=== PATIENT | male | born 1970 | race Caucasian/White ===

== ENCOUNTER → 2017-06-27 17:15 | Emergency (ER) | payer OTHER ==
[~2017-06-27 17:15] MED LIST: Iohexol 350* (CONTRAST) 500 ML MDV IV ONE; Ketorolac INJ* 30 MG/ML 1 ML VIAL IV PUSH ONE; Ketorolac INJ* 30 MG/ML 1 ML VIAL ONE; LORazepam INJ* 2 MG/ML 1 ML VIAL IV PUSH ONE; LORazepam INJ* 2 MG/ML 1 ML VIAL ONE
[2017-06-27 18:38] LABS: Hematocrit 44 % (42-52); Hemoglobin 14.9 g/dl (14.0-18.0); Mean Corpuscular HGB Conc 34 g/dl (31-36); Mean Corpuscular Hemoglobin 33 pg (27-31); Mean Corpuscular Volume 98 fL (80-94); Mean Platelet Volume 8 um3 (7.4-10.4); Platelet Count 165 10^3/ul (150-450); Red Blood Count 4.48 10^6/ul (4.0-5.4); Red Cell Distribution Width 12 % (10.5-15); White Blood Count 7.4 10^3/ul (3.5-10.8)
[2017-06-27 18:44] LABS: ABS Basophils 0.1 10^3/ul (0-0.2); ABS Eosinophils 0.1 10^3/ul (0-0.6); ABS Lymphocytes 1.6 10^3/ul (1.0-4.8); ABS Monocytes 0.8 10^3/ul (0-0.8); ABS Neutrophils 4.9 10^3/ul (1.5-7.7); ABS Nucleated RBC 0 10^3/ul; Lymphocyte % 21.7 % (25-47); Nucleated Red Blood Cells % 0
[2017-06-27 18:55] LABS: EGFR Non-African American 80.1 (>60)
--- NOTE | 2017-06-27 19:00 | RAD ---
HISTORY: Chest pain and shortness of breath COMPARISONS: None TECHNIQUE: Multiple contiguous axial CT scans of the chest were obtained after the administration of nonionic intravenous contrast, timed to the pulmonary arterial phase of contrast enhancement.. Coronal and sagittal multiplanar reformations are also submitted for review. FINDINGS: NECK AND THYROID: The lower neck and thyroid are unremarkable. CHEST WALL: There is no lower cervical, axillary, or supraclavicular lymphadenopathy by size criteria. HEART AND PERICARDIUM: The heart is unremarkable. AORTA AND PULMONARY VASCULATURE: There is no pulmonary arterial filling defect to suggest pulmonary embolism. Evaluation of the aorta is limited by technique; however, there is no appreciable linear filling defect within the aorta to suggest aortic dissection. MEDIASTINUM: There is no mediastinal lymphadenopathy by size criteria. HEMA: There is no hilar lymphadenopathy by size criteria. AIRWAY AND ESOPHAGUS: The airway is unremarkable, without endobronchial filling defect. The esophagus is grossly normal. LUNG PARENCHYMA: There is minimal dependent atelectasis of the lung bases bilaterally. PLEURA: No pleural abnormalities are noted. UPPER ABDOMEN: The upper abdomen is unremarkable. BONES AND SOFT TISSUES: Mild degenerative changes are noted. OTHER: None. IMPRESSION: NO PULMONARY ARTERIAL FILLING DEFECT TO SUGGEST PULMONARY EMBOLISM.
--- NOTE | 2017-06-27 20:58 | ED ---
Davon Mendiola Gabriel, scribed for Eber Cortés MD on 06/27/17 at 2026 . Progress - Progress Note Progress Note: This patient was signed out from Dr. Fair, pending disposition, awaiting CTA Chest/Thorax. CTA reveals NO PULMONARY ARTERIAL FILLING DEFECT TO SUGGEST PULMONARY EMBOLISM. Patient had spasm like pain in the left chest wall. In the ED he was given toradol and Ativan and is feeling better. The patients condition is stable and will be discharged to home with Dx of chest wall pain. Course/Dx - Diagnoses Provider Diagnoses: Chest wall pain The documentation as recorded by the Davon laws Gabriel accurately reflects the service I personally performed and the decisions made by Moo hanks Abdul, MD.
[2017-06-28 00:26] VITALS: BP 116/67
--- NOTE | 2017-06-28 18:17 | ED ---
Ruben Mendiola Angela, scribed for Abhilash Fair MD on 06/27/17 at 1827 . HPI Chest Pain - HPI Summary HPI Summary: This pt is a 47 y/o male presenting to [facility] c/o left sided chest pain that began at 20:00 last night. Pt reports he had intense chest pain last night for 30 minutes and then it dissipated. Today pt notes he had a dull chest pain throughout the day but suddenly had sharp chest pain. He states his chest pain is pleuritic. Pt denies recent long travel distance, SOB, fever. Pt went to see his PCP (Dr. Rodriguez) today and had blood work done. He reports he has had occasional chest pain in the past but it has never been this prolonged. He denies any surgeries. Denies any PMHx. - History of Current Complaint Chief Complaint: EDChestPainROMI Time Seen by Provider: 06/27/17 18:18 Hx Obtained From: Patient Onset/Duration: Started Hours Ago, Still Present Timing: Intermittent, Lasting Minutes Current Severity: Moderate Pain Intensity: 7 Pain Scale Used: 0-10 Numeric Chest Pain Location: Left Anterior Chest Pain Radiates: No Character: Dull/Aching - Dull, Sharp/Stabbing - Sharp Aggravating Factor(s): Nothing Alleviating Factor(s): Nothing Associated Signs and Symptoms: Positive: Chest Pain. Negative: Shortness of Breath, Fever - Allergy/Home Medications Allergies/Adverse Reactions: Allergies Allergy/AdvReac Type Severity Reaction Status Date / Time No Known Allergies Allergy Verified 06/27/17 18:14 PMH/Surg Hx/FS Hx/Imm Hx Endocrine/Hematology History: Denies: Hx Diabetes Cardiovascular History: Denies: Hx Hypertension - Surgical History Surgery Procedure, Year, and Place: None Infectious Disease History: No Infectious Disease History: Denies: Traveled Outside the [place] in Last 30 Days - Family History Known Family History: Negative: Hypertension, Diabetes Family History: Mother: atrial fibrillation. - Social History Alcohol Use: Rare Substance Use Type: Reports: None Smoking Status (MU): Never Smoked Tobacco Review of Systems Negative: Fever, Chills Positive: Chest Pain Negative: Shortness Of Breath Skin: Negative Neurological: Negative All Other Systems Reviewed And Are Negative: Yes Physical Exam - Summary Physical Exam Summary: VITAL SIGNS: Reviewed. GENERAL: Patient is a well-developed and nourished male who is lying comfortable in the stretcher. Patient is not in any acute respiratory distress. HEAD AND FACE: No signs of trauma. No ecchymosis, hematomas or skull depressions. No sinus tenderness. EYES: PERRLA, EOMI x 2, No injected conjunctiva, no nystagmus. EARS: Hearing grossly intact. Ear canals and tympanic membranes are within normal limits. MOUTH: Oropharynx within normal limits. NECK: Supple, trachea is midline, no adenopathy, no JVD, no carotid bruit, no c- spine tenderness, neck with full ROM. CHEST: Symmetric, Tenderness on the left rib cage area. LUNGS: Clear to auscultation bilaterally. No wheezing or crackles. CVS: Regular rate and rhythm, S1 and S2 present, no murmurs or gallops appreciated. ABDOMEN: Soft, non-tender. No signs of distention. No rebound no guarding, and no masses palpated. Bowel sounds are normal. EXTREMITIES: FROM in all major joints, no edema, no cyanosis or clubbing. NEURO: Alert and oriented x 3. No acute neurological deficits. Speech is normal and follows commands. SKIN: Dry and warm Triage Information Reviewed: Yes Vital Signs On Initial Exam: Initial Vitals Temp Pulse Resp BP Pulse Ox 99.3 F 74 20 129/79 98 06/27/17 17:16 06/27/17 17:16 06/27/17 17:16 06/27/17 17:16 06/27/17 17:16 Vital Signs Reviewed: Yes Diagnostics - Vital Signs Vital Signs Temp Pulse Resp BP Pulse Ox 06/27/17 17:16 99.3 F 74 20 129/79 98 - Laboratory Result Diagrams: 06/27/17 18:30 06/27/17 18:30 Lab Statement: Any lab studies that have been ordered have been reviewed, and results considered in the medical decision making process. - EKG 17:22 Cardiac Rate: NL EKG Rhythm: Sinus Rhythm - at 74 bpm EKG Interpretation: No ST elevation. Chest Pain Course/Dx - Course Assessment/Plan: This pt is a 47 y/o male presenting to [facility] c/o left sided chest pain that began at 20:00 last night. Pt reports he had intense chest pain last night for 30 minutes and then it dissipated. Today pt notes he had a dull chest pain throughout the day but suddenly had sharp chest pain. He states his chest pain is pleuritic. Pt denies recent long travel distance, SOB, fever. Pt went to see his PCP (Dr. Rodriguez) today and had blood work done. He reports he has had occasional chest pain in the past but it has never been this prolonged. He denies any surgeries. Denies any PMHx. Test results without any significant abnormalities except for D-dimer of 506. Since he is complaining of mild chest pain and SOB, I ordered a chest CTA to rule out a PE. At this point I will sign the pt out to Dr. Cortés, to follow up on CTA. - Diagnoses Provider Diagnoses: Chest pain, rule out PE Discharge - Discharge Plan Condition: Stable Disposition: OTHER Discharge Disposition Comment: signed out to Dr. Cortés, pending dispo, awaiting chest CTA. Referrals: Jeanie Rodriguez MD [Primary Care Provider] - The documentation as recorded by the Ruben laws Angela accurately reflects the service I personally performed and the decisions made by me, Abhilash Fair MD.
== END ==
LOC: ED 17:15
DX: R07.89 Other chest pain (principal)
CPT/HCPCS: 36415; 71275; 80053; 82550; 82553; 83605; 83880; 84443; 84484; 85025; 85379; 93005; 96374; 96375; 99283; J1885; J2060; Q9967